=== PATIENT | female | born 1945 ===

== ENCOUNTER 2018-07-18 08:24 | Day surgery (SDC) | payer MEDICARE, BC ==
[~2018-07-18 08:24] MED LIST: Acetaminophen TAB* 325 MG PO PRN; Buffered Lidocaine 0.9% SYRIN* 5 ML/SYR SYRINGE INTRADERM ONE; Naloxone* 0.4 MG/ML 1 ML VIAL IV PRN; Ondansetron INJ* 2 MG/ML VIAL IV PRN; fentaNYL* 50 MCG/ML 2 ML VIAL (100 MCG VIAL) IV PRN; oxyCODONE/Acetamin 5/325 MG* TAB PO PRN
[2018-07-18] MEDS ORDERED: ceFAZolin 2 GM PREMIX (*) 2 GM/50 ML BAG IVPB ONE (08:52)
[2018-07-18] MEDS ORDERED: Bupivacaine 0.5%* 50 ML VIAL ONE (09:16)
[2018-07-18] MEDS ORDERED: fentaNYL* 50 MCG/ML 2 ML VIAL (100 MCG VIAL) ONE (10:15)
[2018-07-18] MEDS ORDERED: Propofol* 10 MG/ML 20 ML BTL IV PUSH ONE (10:41)
[2018-07-18] MEDS ORDERED: Metoclopramide IV* 5 MG/ML 2 ML VIAL ONE (10:41)
[2018-07-18] MEDS ORDERED: Lidocaine 2% PF * 5 ML VIAL ONE (10:41)
[2018-07-18] MEDS ORDERED: Ondansetron INJ* 2 MG/ML VIAL ONE (10:41)
[2018-07-18 12:09] VITALS: BP 145/53
--- NOTE | 2018-07-19 00:28 | OP ---
DATE OF OPERATION: 07/18/18 - [facility] DATE OF : 41 SURGEON: Fuad Young MD [employer] REPRESENTATIVE: SAMUEL Bourgeois. An customer assistant was needed for the procedure to aid in positioning of the arm and retraction. ANESTHESIOLOGIST: Dr. Wright. ANESTHESIA: General. 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 OPERATIVE PROCEDURE: 1. Revision, left carpal tunnel release and neurolysis with an extensor approach from the mid palm to the distal forearm. 2. Left median nerve wrapping with AxoGuard nerve wrap. 3. Hypothenar fat pad flap transfer, left palm. INDICATIONS: Maeve had weakness and clumsiness of the hand. Six months ago she underwent carpal tunnel release, however, she did not have numbness and tingling before the surgery. Ever since then, she has had constant numbness and tingling in the middle and ring fingers. There is no obvious Tinel's sign to suggest median nerve laceration, but is quite painful and she has the numbness and tingling, it has not improved at all over the time that I have been following her for the last 3 or so months. We talked about risks and benefits including the risk that she would not getter better with surgery and has persistent medial nerve neuritis and dysfunction. She understood the risk and benefits and wanted to proceed. ESTIMATED BLOOD LOSS: 2 mL. COMPLICATIONS: None. FINDINGS: See above and below. DESCRIPTION OF PROCEDURE: Maeve was seen in the preoperative holding area. The correct site, side, and procedure were identified. We came back to the operating room. The arm was prepped and draped in the usual fashion and time- out was performed. The left arm was exsanguinated with the Esmarch and the tourniquet was inflated to 250 mmHg. I then reopened her prior longitudinal carpal tunnel incision. This was extended distally into the mid palm and proximally across the ulnar side of the wrist in Marixa type fashion. Dissection was carried down and full thickness flaps were raised. I released the proximal antebrachial fascia in an area where it looked like it had not been incised previously. I then performed neurolysis about the median nerve from proximal to distal releasing the median nerve from all adjacent surrounding scar tissue. This took quite some time particularly in the area right in the area of the palmar wrist flexion crease. The nerve looked flattened, compressed and was adherent to some adjacent scar tissue. I continued the neurolysis down distally into the palm. I followed the nerve as it branched and I was able to dissect down and neurolyze the third common digital nerve, the second common digital nerve, the first common digital nerve, the motor branch as well as the proper digital nerve to the thumb. None of these nerves looked lacerated. Nothing looked cut throughout the course of the nerve, the area where the nerve looked most irritated and inflamed was near the area of the palmar wrist flexion crease. I went ahead and performed a circumferential neurolysis. Again this took much more time and was far more difficult than a typical carpal tunnel release surgery. At this point, I decided that it would be best to wrap the nerve, so I went ahead and had them open up an AxoGuard 7 x 20 mm nerve wrap. This was softened up with some saline and then placed around the nerve, trimmed to size and then secured with 3 simple 8-0 nylon interrupted sutures. It was confirmed that none of the sutures were grabbing the nerve. The nerve wrap glided freely over the nerve after the sutures were placed. Once the nerve was wrapped, I went ahead and used the 15-blade to elevate my hypothenar fat pad. It was left to attach proximally and radially as to preserve its blood supply. Great care was taken not to injure the ulnar nerve vascular bundle deeply. The hypothenar fat pad was then rotated until it covered the median nerve. The transfer was secured radially with multiple 4-0 Vicryl simple interrupted sutures. Once the hypothenar fat pad was transferred and was covering the median nerve very nicely, we irrigated out the wound. The skin was closed with 4-0 nylon suture. The operative area was infiltrated with 0.5% Marcaine. The wound was appropriately just dressed in a short arm, plaster splint was applied. The tourniquet was deflated during splint placement and hand pinked up immediately. She was taken to the recovery room in stable condition. [id number]/[facility] #: [id number] [facility]
== END 2018-07-18 12:31 | disposition home or self-care (01) ==
LOC: OREAST 08:24
PROVIDERS: ATTEND Orthopaedic Surgery Hand Surgery
DX: G56.12 Other lesions of median nerve, left upper limb (principal); E11.9 Type 2 diabetes mellitus without complications; Z79.84 Long term (current) use of oral hypoglycemic drugs; E78.5 Hyperlipidemia, unspecified; K21.9 Gastro-esophageal reflux disease without esophagitis; I10 Essential (primary) hypertension; Z87.891 Personal history of nicotine dependence
CPT/HCPCS: J0690; J2405; J2704; J2765; J3010